=== PATIENT | female | born 1990 | race African-American/Black ===

== ENCOUNTER 2025-08-28 19:16 | Emergency (ER) | payer BC, SELFPAY ==
[2025-08-28] VITALS (16 sets, daily range): BP systolic 112–119; BP diastolic 53–75; PULSE 87–115; RESP 12–23; TEMP 36.6; O2SAT 96–100
--- NOTE | 2025-08-28 19:15 | RT.EKG_ITS ---
APPROVED REPORT Exam: Resting ECG Reason for Exam: chest pain Patient Location: E HR:104 bpm ECG Measurements Heart Rate 104 AXIS NC 145 P 52 QRSd 84 QRS 35 QT 348 T 2 QTc 459 Conclusion Sinus tachycardia, rate 104 No interval abnormalities Borderline ST elevation V2, V3, no priors available for comparison, <1mm and does not meet STEMI criteria T wave inversion lead III
--- NOTE | 2025-08-28 20:00 | DI.RAD_ITS ---
Exam(s) XR CHEST 2V PA LATERAL EXAM: XR CHEST 2V PA LATERAL CLINICAL HISTORY: left chest pain TECHNIQUE: 2D digital imaging was performed of the chest. Two images were obtained. PA and lateral views were obtained. COMPARISON: No exams were available for comparison FINDINGS: MEDIASTINUM: Normal. HEART: Normal. PULMONARY VASCULATURE: Normal. LUNGS: There are no focal consolidating infiltrates present. PLEURAL SPACE: No pleural effusion or pneumothorax. BONE:Within normal limits for the patient's age. OTHER FINDINGS:Normal. IMPRESSION: 1. No acute pulmonary findings. If there is continued clinical concern, a repeat examination may be obtained. 2. The preliminary [facility] report was reviewed. DATA REPOSITORY: RADIATION DOSE DELIVERED:
[2025-08-28] MEDS: hydrOXYzine HCL 25 MG TAB PO (20:08)
[2025-08-28 20:11] LABS: Abs Immature Grans 0.04 10^3/uL (0.0-0.06); HCT 36.2 % (36.0-46.0); HGB 12.4 g/dL (11.2-15.7); Immature Grans % 0.4 %; MCH 29.6 pg (27.0-33.0); MCHC 34.3 % (32.0-36.0); MCV 86 fL (80-95); MPV 8.7 fL (8.0-11.0); Platelet Count 310 10^3/uL (130-400); RBC 4.19 10^6/uL (3.93-5.22); RDW 12.5 % (11.7-14.6); RDW-SD 39.6 fL; WBC 10.36 10^3/uL (4.4-10.8)
[2025-08-28 20:25] LABS: Lipase 43 U/L (<78)
[2025-08-28 20:37] LABS: ALT 27 U/L (14-59); AST 16 U/L (15-37); Albumin 3.5 g/dL (3.4-5.0); Alkaline Phosphatase 108 U/L (46-116); Anion Gap 9.7 mmol/L (3-11); BUN 13 mg/dL (7-18); Bilirubin, Total 0.6 mg/dL (0.2-1.0); CO2 26.3 mmol/L (21.0-32.0); Calcium 9.1 mg/dL (8.5-10.1); Chloride 104 mmol/L (98-107); Estimated GFR 86.57 (mL/min/1.73m2); Glucose 103 mg/dL (74-106); Magnesium 2.1 mg/dL (1.8-2.4); Potassium 3.7 mmol/L (3.5-5.1); Sodium 140 mmol/L (136-145); TSH (W/Ref FT4) 3.31 uIU/mL (0.36-3.74); Total Protein 8.1 g/dL (6.4-8.2); Troponin I 4 ng/L (<or=51)
--- NOTE | 2025-08-28 21:10 | W.ED.GENAD ---
Discharge Plan Disposition Patient Disposition: Home Condition: Stable Discharge Details Clinical Impression: Chest pain Primary Care Provider: Unknown,Unknown ED Provider: Chary Zhang Home Meds and New Rx's Prescriptions: Continued hydroxyzine HCl 25 mg tablet 25 mg PO TID PRN levonorgestrel-ethinyl estrad [Aubra] 0.1-20 mg-mcg tablet 1 tab PO DAILY Discharge Instructions Instructions: Chest Pain (DC) Additional Instructions: take tylenol as needed for pain take your hydroxyzine as needed for anxiety please establish care with a new pcp for a daily anxiety medication please return earlier should you develop new, persistent, or worsening complaints Discharge Data Discharge Date/Time-TO BE ENTERED AT DEPARTURE: 08/28/25 21:58 HPI General Date/Time Provider Initiated Documentation: 08/28/25 19:22. HPI Narrative: This 34-year-old female with history of generalized anxiety presents with report of acute onset of chest pain and palpitations that started while she was watching TV earlier this evening. Patient states she has had multiple episodes of similar symptoms in the past with her anxiety. She has had a really stressful day per patient. She states that she has been evaluated at [facility] previously and had workup including CTA PE which was negative. She denies any recent flights surgeries or long drives. She does not know her biological maternal history as she is adopted but her biological paternal history does not history of coronary artery disease she is unsure as to the onset. She states her pain is worse with breathing position change. She does take exogenous estrogen with an oral contraceptive which is not new to her. She does not smoke, drink, or use any illicit substances. She denies any chance of . She denies any fever or chills. She denies any calf pain or swelling. She states the pain is similar to her prior presentations she is not currently on a preventative anxiety medication. Related Data Home Medications ?Medication ?Instructions ?Recorded ?Confirmed hydroxyzine HCl 25 mg tablet 25 mg PO TID PRN 08/28/25 08/28/25 levonorgestrel-ethinyl estradiol 1 tab PO DAILY 08/28/25 08/28/25 0.1 mg-20 mcg tablet (Aubra) Allergies Allergy/AdvReac Type Severity Reaction Status Date / Time bee venom protein (honey bee) Allergy Severe Anaphylaxis Verified 08/28/25 20:25 montiel Allergy Mild Hives Verified 08/28/25 20:25 General Stated Complaint: Chest Pain NIYA: 3 Exam Narrative Exam Narrative: Alert and oriented 34-year-old female with reproducible left chest wall pain, no abdominal tenderness, no Swelling or tenderness distal pulses intact, lungs clear to auscultation no murmurs or rubs no calf swelling or tenderness appreciated speaking complete sentences Course Vital Signs Vital signs: Vital Signs Temperature 36.6 C 08/28/25 19:21 Pulse 115 H 08/28/25 19:21 Respiratory Rate 18 08/28/25 19:21 Blood Pressure 119/75 08/28/25 19:21 Pulse Oximetry 98 08/28/25 19:21 Temperature 36.6 C 08/28/25 19:21 Temperature Source Oral 08/28/25 19:21 Pulse 97 H 08/28/25 20:10 Pulse 99 H 08/28/25 20:20 Respiratory Rate 19 08/28/25 20:20 Blood Pressure 112/53 L 08/28/25 19:37 Blood Pressure Mean 68 08/28/25 19:37 Blood Pressure Position Sitting 08/28/25 19:21 Pulse Oximetry 99 08/28/25 20:10 Oxygen Delivery Method Room Air 08/28/25 19:21 Oxygen Flow Rate 0 08/28/25 19:21 Pain Level 5 08/28/25 19:21 Lab/Test Results Lab/Test Results: Laboratory Tests Range/Units 08/28/25 20:04 WBC (4.4-10.8) 10^3/uL 10.36 RBC (3.93-5.22) 10^6/uL 4.19 Hgb (11.2-15.7) g/dL 12.4 Hct (36.0-46.0) % 36.2 MCV (80-95) fL 86 MCH (27.0-33.0) pg 29.6 MCHC (32.0-36.0) % 34.3 RDW (11.7-14.6) % 12.5 Plt Count (130-400) 10^3/uL 310 MPV (8.0-11.0) fL 8.7 Immature Gran % % 0.4 Neutrophils % % 54.3 Lymphocytes % % 33.7 Monocytes % % 8.6 Eosinophils % % 2.6 Basophils % % 0.4 Nucleated RBC % (0.0-0.3) % 0.0 Absolute Neutrophils (1.2-6.7) 10^3/uL 5.63 Absolute Lymphocytes (1.2-3.4) 10^3/uL 3.49 H Absolute Monocytes (0.1-0.8) 10^3/uL 0.89 H Absolute Eosinophils (0.0-0.7) 10^3/uL 0.27 Absolute Basophils (0.0-0.2) 10^3/uL 0.04 Sodium (136-145) mmol/L 140 Potassium (3.5-5.1) mmol/L 3.7 Chloride (98-107) mmol/L 104 Carbon Dioxide (21.0-32.0) mmol/L 26.3 Anion Gap (3-11) mmol/L 9.7 BUN (7-18) mg/dL 13 Creatinine (0.55-1.02) mg/dL 0.9 Est GFR (CKD-EPI 2020) (mL/min/1.73m2) 86.57 Glucose (74-106) mg/dL 103 Calcium (8.5-10.1) mg/dL 9.1 Magnesium (1.8-2.4) mg/dL 2.1 Total Bilirubin (0.2-1.0) mg/dL 0.6 AST (15-37) U/L 16 ALT (14-59) U/L 27 Alkaline Phosphatase (46-116) U/L 108 Troponin I (<or=51) ng/L 4 Total Protein (6.4-8.2) g/dL 8.1 Albumin (3.4-5.0) g/dL 3.5 Lipase (<78) U/L 43 TSH (0.36-3.74) uIU/mL 3.31 POC- Test(urine) Negative Medical Decision Making Results: Patient with CBC that does not show acute abnormality CMP which is reassuring thyroid within normal limits at 3.3 initial troponin 4, POC negative, chest x-ray per radiology interpretation my review does not show evidence of acute abnormality Assessment and plan: 34-year-old female presenting with chest pain, new 2 negative troponins EKG when compared to prior does not seem to be significantly changed when reviewed from [facility]. Patient is feeling mild symptomatic improvement after hydroxyzine administration, her pulse certainly has improved. I did consider pulmonary embolism however patient had a complete workup with CTA for similar presentation 2 months ago and I think the risk of repeat CTA radiation outweighs benefit at this time given her lack of tachypnea, tachycardia, or hypoxia. She is encouraged to follow-up with her primary care physician for long-term anxiety medication she does have a prescription for hydroxyzine as needed. She may need a stress test as she does have a family history of coronary artery disease but I will leave this to the discretion of her doctor. For the moment there is no evidence of acute ischemia or injury clinically. Return precautions reviewed and patient expressed understanding. [facility] All Active Problems (Updated 08/28/25 @ 21:47 by TILA Messer) Chest pain (Acute) Social History Smoking/Tobacco Use Status: Never Smoking risk assessment performed?: Yes Alcohol Intake: current Alcohol Intake frequency: a few times a month Alcohol type: hard liquor Substance use type: does not use PAWSS Have you Been Recently Intoxicated or Drunk Within the Last 30 days?: No Have you Ever Experienced Previous Episodes of Alcohol Withdrawal?: No Have you ever Experienced Withdrawal Seizures?: No Have you ever Experienced Delirium Tremens(DT)s?: No Have you ever undergone Alcohol Rehabilitation Treatment (i.e, inpt ot outpatient treatment programs)?: No Have you ever Experienced Blackouts?: No Have you ever Combined Alcohol with other Downers within the last 90 days?: No Have you ever Combined Alcohol with any other Substance of Abuse during the last 90 days?: No Positive Blood Alcohol level on Presentation? [PCS.BAL]: No Evidence of Increased Autonomic Activity (i.e. HR>120, tremor, sweating, agitation, nausea)?: No Result: 0
[2025-08-28 21:14] LABS: Glucose Negative (Negative)
[2025-08-28 21:15] LABS: C & S Indicated? No; RBC 0-2 HPF (0-2); WBC Negative HPF (0-5)
[2025-08-28 21:40] LABS: Troponin I 5 ng/L (<or=51)
--- NOTE | 2025-08-28 22:18 | DI.[facility]_ITS ---
PROCEDURE INFORMATION: Exam: XR Chest Exam date and time: 08/28/2025 9:14 PM Age: 34 years old Clinical indication: Left-sided; Left chest pain TECHNIQUE: Imaging protocol: Radiologic exam of the chest. Views: 2 views. COMPARISON: No relevant prior studies available. FINDINGS: Lungs: There is some mild subtle opacity at the lung bases bilaterally. Suspect atelectasis. No evidence for consolidation. Pleural spaces: Unremarkable. No pleural effusion. No pneumothorax. Heart/Mediastinum: Unremarkable. No cardiomegaly. Bones/joints: Unremarkable. IMPRESSION: No significant consolidation. Probable atelectasis. Dictated and Authenticated by: Katy Florentino MD. Orderin Vicente Diez MD
== END 2025-08-28 21:58 | disposition home or self-care (01) ==
PROVIDERS: Emergency Provider Physician Assistant
DX: R07.9 Chest pain, unspecified (principal)
CPT/HCPCS: 99283; 99284; 81025; 36415; 80053; 83690; 93005; 71046; 81003; 81015; 83735; 84443; 84484; 85025; 93010